=== PATIENT | male | born 1970 | race Caucasian/White ===

== ENCOUNTER → 2017-10-29 | Outpatient (CLI) | payer OTHER ==
--- NOTE | 2017-10-29 07:42 | MR ---
EXAMINATION TYPE: MR pituitary wo/w con DATE OF EXAM: 10/29/2017 COMPARISON: NONE HISTORY: Hypothyroidism,Testicular hypofunction TECHNIQUE: Multiplanar, multisequence images of the pituitary is performed without and with IV contrast, utilizi ng 10 mL intravenous Gadavist . FINDINGS: There is a 10.4 x 12.2 millimeter pituitary. Superior dome of the pituitary has slight rounding which may be slightly prominent in a male of this age. Pituitary stalk is in the midline. Pituitary appear s homogenous. Carotid siphon adjacent normal flow voids. No encasement is evident. Optic chiasm is unremarkable. Portions of the brain included within the [id number] are unremarkabl e. IMPRESSION: 1. Pituitary appears slightly full for age and sex match comparison. Discrete focal pituitary abnorma lity is not identified.
== END | disposition home or self-care (01) ==
LOC: RADMRIMAIN 06:16
PROVIDERS: ATTEND Internal Medicine Endocrinology, Diabetes & Metabolism
DX: E03.9 Hypothyroidism, unspecified (principal); E11.9 Type 2 diabetes mellitus without complications; E55.9 Vitamin D deficiency, unspecified; K71.9 Toxic liver disease, unspecified; E29.1 Testicular hypofunction
CPT/HCPCS: 70553; A9581

== ENCOUNTER → 2017-11-05 | Outpatient (CLI) | payer OTHER | END | disposition home or self-care (01) | LOC: LABWHC1 08:45 | PROVIDERS: ATTEND Internal Medicine Endocrinology, Diabetes & Metabolism | DX: E03.9 Hypothyroidism, unspecified (principal); E11.9 Type 2 diabetes mellitus without complications; E55.9 Vitamin D deficiency, unspecified; E29.1 Testicular hypofunction | CPT/HCPCS: 36415; 82947; 82950 ==

== ENCOUNTER → 2018-02-08 | Outpatient (CLI) | payer OTHER ==
[2018-02-08 10:20] LABS: Albumin 4.5 g/dL (3.5-5.0); Total Protein 7.1 g/dL (6.3-8.2)
[2018-02-08 10:34] LABS: T4, Free (Free Thyroxine) 0.96 ng/dL (0.78-2.19)
[2018-02-08 10:40] LABS: Appearance,Urine Clear (Clear); Bilirubin,Urine Negative (Negative); Blood,Urine Negative (Negative); Color,Urine Yellow; Glucose,Urine (UA) Negative (Negative); Ketones,Urine Negative (Negative); Leukocyte Esterase,Urine Negative (Negative); Nitrite,Urine Negative (Negative); Protein,Urine Negative (Negative); Urobilinogen,Urine <2.0 mg/dL (<2.0)
[2018-02-08 10:48] LABS: Prostate Specific Antigen 0.64 ng/mL (0.00-4.00)
[2018-02-08 17:24] LABS: Vitamin D 25 Hydroxy 17.8 ng/mL (30.0-100.0)
[2018-02-08 17:52] LABS: Sex Horm Bind Glob 11.8 nmol/L (14.55-94.64)
== END | disposition home or self-care (01) ==
LOC: LABWHC1 09:07
PROVIDERS: ATTEND Internal Medicine Endocrinology, Diabetes & Metabolism
DX: E11.65 Type 2 diabetes mellitus with hyperglycemia (principal); E03.9 Hypothyroidism, unspecified; E78.2 Mixed hyperlipidemia; K71.9 Toxic liver disease, unspecified; E86.0 Dehydration; E55.9 Vitamin D deficiency, unspecified
CPT/HCPCS: 36415; 80061; 81003; 82040; 82043; 82306; 82570; 83001; 83002; 84153; 84155; 84270; 84403; 84439; 84443; 84450; 84460; 84681

== ENCOUNTER → 2018-09-05 | Outpatient (CLI) | payer OTHER ==
[2018-09-05 16:22] LABS: LDL Cholesterol, Direct 154.4 mg/dL (0.0-129.0)
[2018-09-05 16:31] LABS: Vitamin D 25 Hydroxy 18.8 ng/mL (30.0-100.0)
[2018-09-06 13:39] LABS: Total Volume 24 Hour,Urine 750 mL
[2018-09-06 14:52] LABS: Total Protein 24 Hour,Urine 60.8 mg/24Hr
== END ==
LOC: LABWHC1 09:46
PROVIDERS: ATTEND Internal Medicine Endocrinology, Diabetes & Metabolism
DX: E11.21 Type 2 diabetes mellitus with diabetic nephropathy (principal); E11.65 Type 2 diabetes mellitus with hyperglycemia; E78.2 Mixed hyperlipidemia
CPT/HCPCS: 36415; 82043; 82306; 82570; 82575; 82607; 83721; 84156; 84443; 84478

== ENCOUNTER → 2019-01-26 | Outpatient (CLI) | payer OTHER ==
[~2019-01-26] MED LIST: REGADENOSON 0.4 MG/5 ML SYRINGE IV ONE
--- NOTE | 2019-01-26 11:21 | NM ---
EXAMINATION TYPE: NM stress lexiscan cardiolite DATE OF EXAM: 01/26/2019 COMPARISON: NONE HISTORY: Chest pain TECHNIQUE: After the intravenous administration of 10.2 mCi Tc 99m Sestamibi - Cardiolite resting SP ECT images acquired 45 minutes post injection. The patient received 0.4mg Lexiscan, 26.6 mCi Tc 99m Sestamibi - Stress images obtained [address] injection FINDINGS: Review of stress and rest SPECT images demonstrates no distinct perfusion abnormality. Gated analysi s shows normal wall motion with an estimated left ventricular ejection fraction of 40 %. IMPRESSION: No scintigraphic evidence for reversible ischemia.
--- NOTE | 2019-01-26 13:07 | EST ---
EXERCISE STRESS DATE OF SERVICE: 01/26/2019 AGE: 48 SEX: Male HT: 72" WT: 235 pounds PROTOCOL: Lexiscan Cardiolite STAGE: DURATION OF EXERCISE: HEART RATE REST: 65 BLOOD PRESSURE REST: 118/98 MAXIMUM HEART RATE ACHIEVED: 81 MAXIMUM BLOOD PRESSURE: 118/84 85% MPHR: 100% MPHR: METS: INDICATIONS: Chest pain. CLINICAL INFORMATION: Patient was given Lexiscan injection over a period of 10 seconds. Peak heart rate of 81, was achieved. Maximum blood pressure of 118/84 mmHg was noted. Resting EKG shows normal sinus rhythm with normal [place] interval and QRS duration and normal ST-T waves. No ST-segment depression suggestive of ischemia is noted. Results of the nuclear study will follow. MMODL / IJN: [id number] /
== END | disposition home or self-care (01) ==
LOC: RADNMMAIN 08:21
PROVIDERS: ATTEND Family Medicine
DX: R07.9 Chest pain, unspecified (principal); R94.31 Abnormal electrocardiogram [ECG] [EKG]
CPT/HCPCS: 93017; 78452; A9500; J2785

== ENCOUNTER 2019-03-07 10:29 | Outpatient (CLI) | payer OTHER | END 2019-03-07 12:37 | disposition home or self-care (01) | LOC: LABWHC1 10:29 | PROVIDERS: ATTEND Internal Medicine Endocrinology, Diabetes & Metabolism | DX: Z53.9 Procedure and treatment not carried out, unspecified reason (principal) ==

== ENCOUNTER 2019-03-07 10:40 | Observation (INO) | payer OTHER ==
[2019-03-07] MEDS ORDERED: KETOROLAC 30 MG/ML 1 ML VIAL IVP STA (11:09)
[2019-03-07] MEDS ORDERED: MORPHINE SULFATE 2 MG/ML SYRINGE IVP STA (11:09)
[2019-03-07] MEDS ORDERED: SODIUM CHLORIDE 0.9% 1,000 ML IV ONE (11:09)
--- NOTE | 2019-03-07 11:13 | ED ---
Abdominal Pain HPI <Yuan Navarro - Last Filed: 03/07/19 13:50> - General Source: patient Mode of arrival: ambulatory Limitations: no limitations <Pamela Loco - Last Filed: 03/07/19 15:43> - General Chief Complaint: Abdominal Pain Stated Complaint: Abd.pain Time Seen by Provider: 03/07/19 10:50 - History of Present Illness Initial Comments: 48-year-old male past medical history of peptic ulcer, kidney stones, diabetes, hypertension presenting today for cc of mid lower abdominal pain/burning. Pat ient states in the lower abdomen he has a burning sensation that comes in waves. He states it and come back 15 minutes later. He states at times it radiates towards the right side of his back. Patient denies any hematuria dysuria urgency or frequency. He denies any vomiting. Denies any upper abdominal pain chest pain or shortness of breath. He states he has had stools are loose within normal melena or hematochezia. Patient states she is currently undergoing cardiac clearance for endoscopy as he states that he has had frequent issues with his abdomen, he states that pain is usually burning in the upper abdomen, pt denies any of those symptoms today. Pt states that the pain today began around 5:30AM. Has been on and off. He states he was at the hospital for routine lab draw as prescribed by primary care provider, when he had another episode of pain and presented to the ER for evaluation. Upon arrival pt BP is elevated. Remaining ROS (-). (Pamela Loco) - Related Data Home Medications Medication Instructions Recorded Confirmed Atorvastatin [Lipitor] 10 mg PO DAILY 03/07/19 03/07/19 Empagliflozin [Jardiance] 25 mg PO DAILY 03/07/19 03/07/19 Levothyroxine Sodium [Synthroid] 88 mcg PO DAILY 03/07/19 03/07/19 buPROPion XL [Wellbutrin Xl] 150 mg PO DAILY 03/07/19 03/07/19 Allergies Allergy/AdvReac Type Severity Reaction Status Date / Time No Known Allergies Allergy Verified 03/07/19 10:56 Review of Systems ROS Other: All systems not noted in ROS Statement are negative. <Yuan Navarro - Last Filed: 03/07/19 13:50> ROS Other: All systems not noted in ROS Statement are negative. <Pamela Loco - Last Filed: 03/07/19 15:43> ROS Statement: Those systems with pertinent positive or pertinent negative responses have been documented in the HPI. Past Medical History Past Medical History: Diabetes Mellitus History of Any Multi-Drug Resistant Organisms: None Reported Past Surgical History: No Surgical Hx Reported Additional Past Surgical History / Comment(s): Stress test Past Psychological History: No Psychological Hx Reported Smoking Status: Never smoker Past Alcohol Use History: None Reported Past Drug Use History: None Reported <Pamela Loco - Last Filed: 03/07/19 15:43> General Exam Limitations: no limitations <Pamela Loco - Last Filed: 03/07/19 15:43> - General Exam Comments Initial Comments: General: The patient is awake and alert, in no distress, but patient does appear uncomfortable. Eye: +3 mm pupils are equal, round and reactive to light, extra-ocular movements are intact. No nystagmus. There is normal conjunctiva bilaterally. No signs of icterus. Ears, nose, mouth and throat: There are moist mucous membranes and no oral lesions. Neck: The neck is supple, there is no tenderness or JVD. Cardiovascular: There is a regular rate and rhythm. No murmur, rub or gallop is appreciated. Respiratory: Lungs are clear to auscultation, respirations are non-labored, breath sounds are equal. No wheezes, stridor, rales, or rhonchi. Gastrointestinal: Soft, non-distended, non-tender abdomen without masses or organomegaly noted. There is no rebound or guarding present. No CVA tenderness. Bowel sounds are unremarkable. Musculoskeletal: Normal ROM, no tenderness. Strength 5/5. Sensation intact. Pulses equal bilaterally 2+. Neurological: A&O x 3. CN II-XII intact, There are no obvious motor or sensory deficits. Coordination appears grossly intact. Speech is normal. Skin: Skin is warm and dry and no rashes or lesions are noted. Psychiatric: Cooperative, appropriate mood & affect, normal judgment. (Ariadna Locoharry Ward) Course <NavarroYuan - Last Filed: 03/07/19 13:50> Vital Signs 03/07/19 03/07/19 03/07/19 10:46 12:30 14:00 Temperature 97.6 F 98.3 F Pulse Rate 80 62 67 Respiratory 20 18 20 Rate Blood Pressure 166/106 129/73 138/88 O2 Sat by Pulse 98 98 95 Oximetry - Reevaluation(s) Reevaluation #1: 03/07/19 13:50 Patient reevaluated and reexamined by myself, Dr. Navarro. Patient resting comfortably in bed. Abdomen soft with mild tenderness right lower quadrant. CT report reviewed. Case was discussed in detail with Dr. Alvarez, at patient request. He will take the patient to the OR. He does request antibiotics. (Yuan Navarro) Medical Decision Making - Lab Data Result diagrams: 03/07/19 11:30 03/07/19 11:30 <Yuan Navarro - Last Filed: 03/07/19 13:50> - Lab Data Result diagrams: 03/07/19 11:30 03/07/19 11:30 <Pamela Loco - Last Filed: 03/07/19 15:43> - Medical Decision Making 48yo male presenting today for chief complaint of right side abdominal pain. Patient has history of kidney stones. There was concern with location of pain with radiation to the right flank this was another stone patient did deny urinary symptoms. There is no smoking tenderness to palpation of the abdomen. Patient was given Toradol, morphine-helped minimally. Laboratory studies revealed leukocytosis. Pt does not appears toxic, afebrile. CT obtained revealing any consistent with acute appendicitis. Patient was started on zosyn, blood cultures obtained process. No signs of peritneal irritations. Pt preferred Dr. Reilly as a surgeron. Dr. Reilly accepted admission. Agreeable with admission and care plan. Pt transferred to the floor after discussing results/care plan, appearing well. Medicine on consult. Case was discussed with Dr. Navarro who did speak with admitting provider, no further orders. (Pamela Loco) - Lab Data Lab Results 03/07/19 03/07/19 03/07/19 Range/Units 11:30 11:30 11:30 WBC 11.4 H (3.8-10.6) k/uL RBC 5.38 (4.30-5.90) m/uL Hgb 15.5 (13.0-17.5) gm/dL Hct 46.7 (39.0-53.0) % MCV 86.9 (80.0-100.0) fL MCH 28.9 (25.0-35.0) pg MCHC 33.2 (31.0-37.0) g/dL RDW 13.4 (11.5-15.5) % Plt Count 225 (150-450) k/uL Neutrophils % 75 % Lymphocytes % 18 % Monocytes % 5 % Eosinophils % 1 % Basophils % 0 % Neutrophils # 8.6 H (1.3-7.7) k/uL Lymphocytes # 2.0 (1.0-4.8) k/uL Monocytes # 0.6 (0-1.0) k/uL Eosinophils # 0.1 (0-0.7) k/uL Basophils # 0.0 (0-0.2) k/uL Sodium 142 (137-145) mmol/L Potassium 4.4 (3.5-5.1) mmol/L Chloride 110 H (98-107) mmol/L Carbon Dioxide 23 (22-30) mmol/L Anion Gap 9 mmol/L BUN 20 (9-20) mg/dL Creatinine 0.92 (0.66-1.25) mg/dL Est GFR (CKD-EPI)AfAm >90 (>60 ml/min/1.73 sqM) Est GFR (CKD-EPI)NonAf >90 (>60 ml/min/1.73 sqM) Glucose 147 H (74-99) mg/dL POC Glucose (mg/dL) 141 H (75-99) mg/dL POC Glu Horizontal Boring [employer] Operator ID [place] Calcium 9.9 (8.4-10.2) mg/dL Total Bilirubin 1.0 (0.2-1.3) mg/dL AST 24 (17-59) U/L ALT 52 (21-72) U/L Alkaline Phosphatase 95 (38-126) U/L Total Protein 7.1 (6.3-8.2) g/dL Albumin 4.5 (3.5-5.0) g/dL Amylase 40 (30-110) U/L Lipase 48 (23-300) U/L Urine Color Urine Appearance (Clear) Urine pH (5.0-8.0) Ur Specific [place] (1.001-1.035) Urine Protein (Negative) Urine Glucose (UA) (Negative) Urine Ketones (Negative) Urine Blood (Negative) Urine Nitrite (Negative) Urine Bilirubin (Negative) Urine Urobilinogen (<2.0) mg/dL Ur Leukocyte Esterase (Negative) 03/07/19 Range/Units 11:30 WBC (3.8-10.6) k/uL RBC (4.30-5.90) m/uL Hgb (13.0-17.5) gm/dL Hct (39.0-53.0) % MCV (80.0-100.0) fL MCH (25.0-35.0) pg MCHC (31.0-37.0) g/dL RDW (11.5-15.5) % Plt Count (150-450) k/uL Neutrophils % % Lymphocytes % % Monocytes % % Eosinophils % % Basophils % % Neutrophils # (1.3-7.7) k/uL Lymphocytes # (1.0-4.8) k/uL Monocytes # (0-1.0) k/uL Eosinophils # (0-0.7) k/uL Basophils # (0-0.2) k/uL Sodium (137-145) mmol/L Potassium (3.5-5.1) mmol/L Chloride (98-107) mmol/L Carbon Dioxide (22-30) mmol/L Anion Gap mmol/L BUN (9-20) mg/dL Creatinine (0.66-1.25) mg/dL Est GFR (CKD-EPI)AfAm (>60 ml/min/1.73 sqM) Est GFR (CKD-EPI)NonAf (>60 ml/min/1.73 sqM) Glucose (74-99) mg/dL POC Glucose (mg/dL) (75-99) mg/dL POC Glu Horizontal [employer] Operator ID Calcium (8.4-10.2) mg/dL Total Bilirubin (0.2-1.3) mg/dL AST (17-59) U/L ALT (21-72) U/L Alkaline Phosphatase (38-126) U/L Total Protein (6.3-8.2) g/dL Albumin (3.5-5.0) g/dL Amylase (30-110) U/L Lipase (23-300) U/L Urine Color Yellow Urine Appearance Clear (Clear) Urine pH 5.0 (5.0-8.0) Ur Specific [place] 1.040 H (1.001-1.035) Urine Protein Negative (Negative) Urine Glucose (UA) 4+ H (Negative) Urine Ketones Negative (Negative) Urine Blood Negative (Negative) Urine Nitrite Negative (Negative) Urine Bilirubin Negative (Negative) Urine Urobilinogen <2.0 (<2.0) mg/dL Ur Leukocyte Esterase Negative (Negative) Disposition <Yuan Navarro - Last Filed: 03/07/19 13:50> Is patient prescribed a controlled substance at d/c from ED?: No Time of Disposition: 13:44 Decision to Admit Reason: Admit from EC Decision Date: 03/07/19 Decision Time: 13:44 <Pamela Loco - Last Filed: 03/07/19 15:43> Clinical Impression: Appendicitis Disposition: ADMITTED IP TO THIS HOSP Condition: Stable
[2019-03-07 11:33] LABS: Glucose,Whole Blood 141 mg/dL (75-99)
[2019-03-07 11:47] LABS: Appearance,Urine Clear (Clear); Bilirubin,Urine Negative (Negative); Blood,Urine Negative (Negative); Color,Urine Yellow; Glucose,Urine (UA) 4+ (Negative); Ketones,Urine Negative (Negative); Leukocyte Esterase,Urine Negative (Negative); Nitrite,Urine Negative (Negative); Protein,Urine Negative (Negative); Urobilinogen,Urine <2.0 mg/dL (<2.0)
[2019-03-07 11:48] LABS: Basophils % (A) 0 %; Eosinophils # (A) 0.1 k/uL (0-0.7); Eosinophils % (A) 1 %; HCT 46.7 % (39.0-53.0); HGB 15.5 gm/dL (13.0-17.5); Lymphocytes % (A) 18 %; MCH 28.9 pg (25.0-35.0); MCHC 33.2 g/dL (31.0-37.0); MCV 86.9 fL (80.0-100.0); Mean Platelet Volume 7.2; Monocytes # (A) 0.6 k/uL (0-1.0); Monocytes % (A) 5 %; Neutrophils # (A) 8.6 k/uL (1.3-7.7); Neutrophils % (A) 75 %; Platelet Count 225 k/uL (150-450); RBC 5.38 m/uL (4.30-5.90); RDW 13.4 % (11.5-15.5); WBC 11.4 k/uL (3.8-10.6)
[2019-03-07 11:59] LABS: ALT 52 U/L (21-72); AST 24 U/L (17-59); Albumin 4.5 g/dL (3.5-5.0); Alkaline Phosphatase 95 U/L (38-126); Amylase 40 U/L (30-110); Anion Gap 9 mmol/L; Blood Urea Nitrogen 20 mg/dL (9-20); Calcium 9.9 mg/dL (8.4-10.2); Carbon Dioxide 23 mmol/L (22-30); Chloride 110 mmol/L (98-107); Glucose 147 mg/dL (74-99); Lipase 48 U/L (23-300); Potassium 4.4 mmol/L (3.5-5.1); Sodium 142 mmol/L (137-145); Total Protein 7.1 g/dL (6.3-8.2)
--- NOTE | 2019-03-07 13:31 | CT ---
EXAMINATION TYPE: CT abdomen pelvis w con DATE OF EXAM: 03/07/2019 COMPARISON: NONE HISTORY: 48-year-old male with right flank Pain TECHNIQUE: Contiguous axial scanning of the abdomen and pelvis following administration of 100 ml Iso sweetie 300 IV contrast. Delayed images through the kidneys and coronal/sagittal reconstructions perform ed. CT DLP: 1263.9 mGycm Automated exposure control for dose reduction was used. FINDINGS: Heart normal size without pericardial effusion. Lung bases clear without pleural effusion. Liver enlarged measuring 22.4 cm. Low density of the hepatic parenchyma. Portal venous system is quach nt. No biliary ductal dilatation. Gallbladder, adrenal glands, spleen with inferior splenule, pancreas appear within normal limits. No nephrolithiasis or hydronephrosis. Symmetric uptake and excretion of contrast from both kidneys. No dilated small bowel, free fluid, or free air. Some scattered nonenlarged borderline sized mesenteric lymph nodes, likely reactive/post inflammatory . Appendix is visualized. It is mildly thickened at 1 cm in the mid to distal portion is fluid-filled. Minimal periappendiceal fat stranding is suggested. No significant stool burden. No pericolonic inflammatory change. Bladder is urine distended. Prostate gland mildly enlarged at 4.2 cm. Pelvic phleboliths. No abnormal fluid collection in the pelvis or pelvic lymphadenopathy. Bones: Mild degenerative changes at the hips. Mild degenerative changes left SI joint. Status post L4 /L5 laminectomy. Degenerative disc disease L5-S1. IMPRESSION: 1. MILDLY THICKENED, FLUID-FILLED APPENDIX WITH MINIMAL PERIAPPENDICEAL FAT STRANDING. FINDINGS ARE S USPICIOUS FOR EARLY ACUTE APPENDICITIS. NO ABSCESS OR FREE AIR. 2. HEPATOMEGALY (22.4 CM) WITH HEPATIC STEATOSIS. 3. NO NEPHROLITHIASIS OR HYDRONEPHROSIS.
[2019-03-07] MEDS ORDERED: PIPERACILLIN-TAZOBACTAM 3.375 GM in SODIUM CHLORIDE 0.9% 100 ML IVPB STA (13:33)
[2019-03-07] MEDS ORDERED: NALOXONE 0.4 MG/ML 1 ML VIAL IV PRN (13:55)
[2019-03-07] MEDS ORDERED: ONDANSETRON 4 MG/2 ML VIAL IVP PRN ×2 (13:55→16:24)
[2019-03-07] MEDS: SODIUM CHLORIDE 0.9% 1,000 ML IV SCH (14:17)
[2019-03-07] MEDS: MORPHINE SULFATE 4 MG/ML SYRINGE IV PRN ×2 (15:01→22:46)
[2019-03-07] MEDS ORDERED: IV FLUID CONTINUATION 1,000 ML IV ONE (15:16)
[2019-03-07 15:17] VITALS: BMI 32.5
[2019-03-07] MEDS ORDERED: LACTATED RINGERS 1,000 ML IV ONE (15:49)
[2019-03-07] MEDS ORDERED: BUPIVACAIN-EPI 0.5%-1:200,000 30 ML VIAL SQ ONE ×2 (16:12)
--- NOTE | 2019-03-07 16:18 | P.GSHP ---
History of Present Illness H&P Date: 03/07/19 Chief Complaint: acute appendicitis Patient presents to the ER today with complaints of lower abdominal pain. Right side greater than left. Radiation to the right back. He has had similar symptoms in the past. He has had a history of kidney stones in the past. Patient underwent a CAT scan of the and pelvis which shows a dilated appendix approaching 10 mm. Mild inflammatory changes present. No additional abnormalities to explain his pain. White blood cell count slightly elevated. He is afebrile. Denies hematuria or dysuria. No change in bowel habits. Past Medical History Past Medical History: Diabetes Mellitus Additional Past Medical History / Comment(s): NIDDM type II, neuropathy bilateral feet, frequent abdominal pain, nephrolithiasis, hypothyroid, chronic low back pain, DDD, back injury with wt lifting, nerve damage L leg. History of Any Multi-Drug Resistant Organisms: None Reported Past Surgical History: No Surgical Hx Reported Additional Past Surgical History / Comment(s): Stress test Past Anesthesia/Blood Transfusion Reactions: No Reported Reaction Past Psychological History: No Psychological Hx Reported Smoking Status: Never smoker Past Alcohol Use History: None Reported Past Drug Use History: None Reported - Past Family History Father Family Medical History: Diabetes Mellitus Mother Family Medical History: Rheumatoid Arthritis (RA) Son(s) Family Medical History: Rheumatoid Arthritis (RA) Medications and Allergies Home Medications Medication Instructions Recorded Confirmed Type Atorvastatin [Lipitor] 10 mg PO DAILY 03/07/19 03/07/19 History Empagliflozin [Jardiance] 25 mg PO DAILY 03/07/19 03/07/19 History Levothyroxine Sodium [Synthroid] 88 mcg PO DAILY 03/07/19 03/07/19 History buPROPion XL [Wellbutrin Xl] 150 mg PO DAILY 03/07/19 03/07/19 History Allergies Allergy/AdvReac Type Severity Reaction Status Date / Time No Known Allergies Allergy Verified 03/07/19 10:56 Surgical - Exam Vital Signs Temp Pulse Resp BP Pulse Ox 97.6 F 80 20 166/106 98 03/07/19 10:46 03/07/19 10:46 03/07/19 10:46 03/07/19 10:46 03/07/19 10:46 Physical exam: General: Well-developed, well-nourished HEENT: Normocephalic, sclerae nonicteric Abdomen: Right lower quadrant tenderness, no rebound or guarding, no CVA tenderness, nondistended Extremities: No edema Neuro: Alert and oriented Results - Labs 03/07/19 11:30 03/07/19 11:30 Abnormal Lab Results - Last 24 Hours (Table) 03/07/19 03/07/19 03/07/19 Range/Units 11:30 11:30 11:30 WBC 11.4 H (3.8-10.6) k/uL Neutrophils # 8.6 H (1.3-7.7) k/uL Chloride 110 H (98-107) mmol/L Glucose 147 H (74-99) mg/dL POC Glucose (mg/dL) 141 H (75-99) mg/dL Ur Specific [place] (1.001-1.035) Urine Glucose (UA) (Negative) 03/07/19 Range/Units 11:30 WBC (3.8-10.6) k/uL Neutrophils # (1.3-7.7) k/uL Chloride (98-107) mmol/L Glucose (74-99) mg/dL POC Glucose (mg/dL) (75-99) mg/dL Ur Specific [place] 1.040 H (1.001-1.035) Urine Glucose (UA) 4+ H (Negative) Diabetes panel 03/07/19 Range/Units 11:30 Sodium 142 (137-145) mmol/L Potassium 4.4 (3.5-5.1) mmol/L Chloride 110 H (98-107) mmol/L Carbon Dioxide 23 (22-30) mmol/L BUN 20 (9-20) mg/dL Creatinine 0.92 (0.66-1.25) mg/dL Glucose 147 H (74-99) mg/dL Calcium 9.9 (8.4-10.2) mg/dL AST 24 (17-59) U/L ALT 52 (21-72) U/L Alkaline Phosphatase 95 (38-126) U/L Total Protein 7.1 (6.3-8.2) g/dL Albumin 4.5 (3.5-5.0) g/dL Calcium panel 03/07/19 Range/Units 11:30 Calcium 9.9 (8.4-10.2) mg/dL Albumin 4.5 (3.5-5.0) g/dL Pituitary panel 03/07/19 Range/Units 11:30 Sodium 142 (137-145) mmol/L Potassium 4.4 (3.5-5.1) mmol/L Chloride 110 H (98-107) mmol/L Carbon Dioxide 23 (22-30) mmol/L BUN 20 (9-20) mg/dL Creatinine 0.92 (0.66-1.25) mg/dL Glucose 147 H (74-99) mg/dL Calcium 9.9 (8.4-10.2) mg/dL Adrenal panel 03/07/19 Range/Units 11:30 Sodium 142 (137-145) mmol/L Potassium 4.4 (3.5-5.1) mmol/L Chloride 110 H (98-107) mmol/L Carbon Dioxide 23 (22-30) mmol/L BUN 20 (9-20) mg/dL Creatinine 0.92 (0.66-1.25) mg/dL Glucose 147 H (74-99) mg/dL Calcium 9.9 (8.4-10.2) mg/dL Total Bilirubin 1.0 (0.2-1.3) mg/dL AST 24 (17-59) U/L ALT 52 (21-72) U/L Alkaline Phosphatase 95 (38-126) U/L Total Protein 7.1 (6.3-8.2) g/dL Albumin 4.5 (3.5-5.0) g/dL Assessment and Plan (1) Appendicitis Narrative/Plan: Clinical scenario and diagnostic studies discussed with patient and his . Will proceed with laparoscopic appendectomy, possible open appendectomy. Risks of bleeding, infection, abscess, staple line dehiscence, ureteral or bowel injury, persistent pain, conversion to an open procedure, respiratory and cardiac complications were reviewed. He understands and wishes to proceed. Current Visit: Yes Status: Acute Code(s): K37 - UNSPECIFIED APPENDICITIS SNOMED Code(s): 27295583
[2019-03-07] MEDS ORDERED: fentaNYL (PF) 50 MCG/ML 2 ML AMP ONE (16:23)
[2019-03-07] MEDS ORDERED: SUCCINYLCHOLINE CHLORIDE 100 MG/5 ML SYR IV ONE (16:23)
[2019-03-07] MEDS ORDERED: MIDAZOLAM 2 MG/2 ML VIAL ONE (16:23)
[2019-03-07] MEDS ORDERED: ROCURONIUM BROMIDE 10 MG/ML 10 ML VIAL IV ONE (16:23)
[2019-03-07] MEDS ORDERED: HEPARIN SODIUM,PORCINE 5,000 UNIT/ML 1 ML VIAL SQ ONE (16:23)
[2019-03-07] MEDS ORDERED: ONDANSETRON 4 MG/2 ML VIAL ONE (16:23)
[2019-03-07] MEDS ORDERED: LIDOCAINE 1% INJ 10MG/ML (20 ML MDV) ONE (16:23)
[2019-03-07] MEDS ORDERED: PROPOFOL 10 MG/ML 20 ML VIAL IV ONE (16:23)
[2019-03-07] MEDS ORDERED: GLYCOPYRROLATE 0.2 MG/ML 2 ML VIAL ONE (16:23)
[2019-03-07] MEDS ORDERED: NEOSTIGMINE 1 MG/ML 10 ML VIAL ONE (16:23)
[2019-03-07] MEDS ORDERED: FAMOTIDINE 20 MG/2 ML VIAL IV PRN (16:24)
[2019-03-07] MEDS ORDERED: HYDROmorphone 0.5 MG/0.5 ML SYRINGE IVP PRN (16:24)
[2019-03-07] MEDS ORDERED: LACTATED RINGERS 1,000 ML IV SCH (16:30)
[2019-03-07] MEDS ORDERED: KETOROLAC 30 MG/ML 1 ML VIAL IVP ONE (17:32)
[2019-03-07] MEDS ORDERED: ONDANSETRON 4 MG/2 ML VIAL IVP ONE (17:47)
[2019-03-07] MEDS ORDERED: HYDROcodone/APAP 5-325MG 1 EACH TAB PO PRN (17:52)
--- NOTE | 2019-03-07 17:52 | P.OP ---
Date of Procedure: 03/07/19 Procedure(s) Performed: PREOPERATIVE DIAGNOSIS: Acute appendicitis POSTOPERATIVE DIAGNOSIS: Same PROCEDURE: Laparoscopic appendectomy SURGEON: Melba EBL: Total ANESTHESIA: General COMPLICATIONS: None OPERATIVE PROCEDURE: The patient was brought and placed on the operating table in the supine position. The patient was placed under general anesthesia. The abdomen was prepped and draped in the usual sterile fashion. A small vertical infraumbilical incision was made. The fascia was retracted anteriorly with Mike forceps. The Veress needle was advanced into the peritoneal cavity. The saline drop test was normal. Insufflation took place to 15 mmHg. A 5 mm trocar was then placed. An additional 5 mm suprapubic trocar was placed under direct visualization as well as a 12 mm left lower quadrant trocar under direct visualization. The appendix was inspected. It was acutely inflamed. The mesoappendix was dissected. The base of the appendix was divided using a linear 45 mm intestinal stapler. The mesentery itself was divided using a augustin load stapler initially. A small area of bleeding was seen controlled using the 12 mm clip community outreach director. The area was then irrigated. No further purulence or bleeding was seen. The appendix was brought out of the peritoneal cavity through the left lower quadrant trocar site using an Endo Catch bag. The fascia at the 12 mm site was closed using a Erlin-Trang 0 Vicryl stitch. The skin at all 3 sites was closed using 4-0 Monocryl sutures. Skin glue was then applied. DISPOSITION: Stable to recovery room
[2019-03-07] MEDS: KETOROLAC 30 MG/ML 1 ML VIAL IVP SCH (18:04)
[2019-03-07 21:31] LABS: Glucose,Whole Blood 117 mg/dL (75-99)
[2019-03-07] MEDS: INSULIN ASPART (NovoLOG) 100 UNIT/ML VIAL SQ SCH (21:34)
--- NOTE | 2019-03-07 23:43 | CONS ---
CONSULTATION DATE OF SERVICE: 03/07/2019 REASON FOR CONSULTATION: Advice regarding diabetes and other medical issues, requested by Dr. Reilly. HISTORY OF PRESENT ILLNESS: This 48-year-old gentleman with a past medical history of diabetes mellitus, type 2, history of peripheral neuropathy, history of nephrolithiasis, hypothyroidism, chronic back pain, DJD, is being followed by Dr. Hilary Mcfarland in the outpatient setting. He underwent laparoscopic appendectomy for appendicitis. The patient has complaints of postoperative abdominal pain. Otherwise, there is no history of any fever, rigors, chills. No history of headache, loss of consciousness, seizures. PAST MEDICAL HISTORY: 1. History of diabetes mellitus, type 2. 2. Neuropathy, bilateral feet. 3. Nephrolithiasis. 4. Hypothyroidism. 5. Chronic back pain. 6. Degenerative joint disease. MEDICATIONS: Medications prior to admission were: 1. Wellbutrin XL 150 mg p.o. daily. 2. Synthroid 18 mcg p.o. daily. 3. Jardiance 25 mg p.o. daily. 4. Lipitor 10 mg daily. ALLERGIES: NONE. FAMILY HISTORY: History of diabetes mellitus in the family. SOCIAL HISTORY: No history of smoking. No history of alcohol intake. REVIEW OF SYSTEMS: ENT: No diminished hearing. No diminished vision. CARDIOVASCULAR SYSTEM: No angina, palpitations. RESPIRATORY SYSTEM: No cough, hemoptysis. GI: As mentioned earlier. : No dysuria or retention. NERVOUS SYSTEM: As mentioned earlier. ALLERGY/IMMUNOLOGY: No asthma, hayfever. MUSCULOSKELETAL: As mentioned earlier. HEMATOLOGY/ONCOLOGY: No history of anemia. ENDOCRINE: As mentioned earlier. CONSTITUTIONAL: As mentioned earlier. DERMATOLOGY: Negative. RHEUMATOLOGY: Negative. PSYCHIATRY: As mentioned earlier. PHYSICAL EXAMINATION: Patient alert and oriented x3. Pulse 50, blood pressure 143/85, respirations 16, temperature 97 degrees, pulse ox 94% on 3 L. HEENT: Conjunctivae normal. Oral mucosa moist. NECK: No jugular venous distention. No carotid bruit. No lymph node enlargement. CARDIOVASCULAR SYSTEM: S1, S2 muffled. No S3. No S4. RESPIRATORY SYSTEM: Breath sounds diminished at the bases. No rhonchi. No crackles. ABDOMEN: Soft. Status post surgery (laparoscopic appendectomy). LEGS: No edema. No swelling. NERVOUS SYSTEM: Higher functions as mentioned earlier. Moves all 4 limbs. No focal motor or sensory deficit. LYMPHATICS: No lymph node palpable in neck, axillae or groin. JOINTS: No active deforming arthropathy. LABS: WBC 11.4, hemoglobin 15.5. ASSESSMENT: 1. Status post laparoscopic appendectomy for acute appendicitis. 2. Diabetes mellitus, type 2. 3. Bilateral peripheral neuropathy. 4. Nephrolithiasis. 5. Hypothyroidism. 6. Chronic back pain and degenerative joint disease. RECOMMENDATIONS AND DISCUSSION: In this 48-year-old gentleman who presented after surgery, at this time I recommend to continue current management, continue symptomatic treatment. Monitor blood sugars closely. Otherwise, the basic labs are noted. DVT prophylaxis. Incentive spirometry. Will follow the patient closely with you. Patient may be asked to follow up with a primary physician in the outpatient setting. Once the patient is p.o., the rest of the medications also may be continued. Otherwise, we will follow the patient closely with you. Thank you, Dr. Reilly, for letting us participate in the care of this patient. MMODL / IJN: [id number] /
[2019-03-08] MEDS: HEPARIN SODIUM,PORCINE 5,000 UNIT/ML 1 ML VIAL SQ SCH ×2 (01:16→08:42)
[2019-03-08] MEDS: KETOROLAC 30 MG/ML 1 ML VIAL IVP SCH ×3 (01:16→12:51)
[2019-03-08] MEDS: SODIUM CHLORIDE 0.9% 1,000 ML IV SCH (01:17)
[2019-03-08] MEDS: PIPERACILLIN-TAZOBACTAM 3.375 GM in SODIUM CHLORIDE 0.9% 100 ML IVPB SCH ×2 (01:34→08:42)
[2019-03-08 03:52] VITALS: TEMP 98.1
[2019-03-08] MEDS ORDERED: LEVOTHYROXINE 88 MCG TAB PO SCH (06:30)
[2019-03-08 06:57] LABS: Glucose,Whole Blood 129 mg/dL (75-99)
[2019-03-08 08:34] VITALS: BP 108/68; PULSE 59; RESP 18
[2019-03-08] MEDS: INSULIN ASPART (NovoLOG) 100 UNIT/ML VIAL SQ SCH ×2 (08:37→12:51)
[2019-03-08] MEDS ORDERED: Empagliflozin [Jardiance] 25 MG PO SCH (09:00)
[2019-03-08] MEDS ORDERED: buPROPion XL 150 MG TAB.ER.24H PO SCH (09:00)
--- NOTE | 2019-03-08 09:33 | P.DS ---
Providers Date of admission: 03/07/19 13:51 Expected date of discharge: 03/08/19 Attending physician: Tim Reilly Consults: 03/07/19 13:56 Consult Physician Routine Consulting Provider: Monica Gibbs Consult Reason/Comments: appendicits, surgical admit, med consult Do you want consulting provider notified?: Yes Primary care physician: Hilary Mcfarland - Discharge Diagnosis(es) (1) Appendicitis Patient admitted yesterday through the emergency department. Doing well today. Tolerating liquid diet so far. Denies any significant pain. He is afebrile. Will advance diet further. Anticipate discharge today with outpatient follow-up in 1 week. Current Visit: Yes Status: Acute Patient Condition at Discharge: Stable Plan - Discharge Summary Discharge Rx Participant: No New Discharge Prescriptions: No Action buPROPion XL [Wellbutrin Xl] 150 mg PO DAILY Levothyroxine Sodium [Synthroid] 88 mcg PO DAILY Empagliflozin [Jardiance] 25 mg PO DAILY Atorvastatin [Lipitor] 10 mg PO DAILY Discharge Medication List Atorvastatin [Lipitor] 10 mg PO DAILY 03/07/19 [History] Empagliflozin [Jardiance] 25 mg PO DAILY 03/07/19 [History] Levothyroxine Sodium [Synthroid] 88 mcg PO DAILY 03/07/19 [History] buPROPion XL [Wellbutrin Xl] 150 mg PO DAILY 03/07/19 [History] Follow up Appointment(s)/Referral(s): Hilary Mcfarland, [Primary Care Provider] - 1-2 days
[2019-03-08 11:47] LABS: Glucose,Whole Blood 135 mg/dL (75-99)
--- NOTE | 2019-03-08 17:25 | PN ---
PROGRESS NOTE DATE OF SERVICE: 03/08/2019 This 48-year-old gentleman who was admitted after appendectomy is being closely monitored. No chest pain. No palpitations. Patient complains of postoperative abdominal pain. On exam, alert and oriented x3. Pulse 59, blood pressure 108/68, respiration 18, temperature 98.1, pulse ox 94% on room air. HEENT: Conjunctivae normal. NECK: No jugular venous distention. CARDIOVASCULAR SYSTEM: S1, S2 muffled. RESPIRATORY SYSTEM: Breath sounds diminished at the bases. No rhonchi. No crackles. ABDOMEN: Soft. Status post surgery. LEGS: No edema. No swelling. NERVOUS SYSTEM: No focal deficit. LABS: WBC 11.4. Accu-Cheks are noted. ASSESSMENT: 1. Status post laparoscopic appendectomy for acute appendicitis. 2. Diabetes mellitus, type 2. 3. Bilateral peripheral neuropathy. 4. Nephrolithiasis. 5. Hypothyroidism. 6. Chronic back pain. 7. Degenerative joint disease. RECOMMENDATIONS AND DISCUSSION: I recommend to continue current medications, continue with the monitoring, symptomatic treatment. Resume the home medications. Monitor blood sugars closely. Incentive spirometry. Closely follow with the primary physician. The rest of the medications per Dr. Reilly. Further recommendations to follow. MMODL / IJN: [id number] /
== END 2019-03-08 13:30 | disposition home or self-care (01) ==
LOC: EC 10:40 → 1SOBS 13:51
PROVIDERS: ADMIT Surgery; ATTEND Surgery
DX: K35.30 Acute appendicitis with localized peritonitis, without perforation or gangrene (principal); I10 Essential (primary) hypertension; E11.42 Type 2 diabetes mellitus with diabetic polyneuropathy; E03.9 Hypothyroidism, unspecified; M19.90 Unspecified osteoarthritis, unspecified site; G47.33 Obstructive sleep apnea (adult) (pediatric); E78.5 Hyperlipidemia, unspecified; M10.9 Gout, unspecified; K76.0 Fatty (change of) liver, not elsewhere classified; G89.29 Other chronic pain; M54.5 Low back pain; Z79.890 Hormone replacement therapy; Z79.84 Long term (current) use of oral hypoglycemic drugs; Z79.899 Other long term (current) drug therapy; Z87.442 Personal history of urinary calculi; Z87.11 Personal history of peptic ulcer disease; Z82.61 Family history of arthritis; Z83.3 Family history of diabetes mellitus
CPT/HCPCS: 44970; 96372; 96361; 96374; 96375; 99285; 36415; 88304; 80053; 82150; 83690; 85025; 81003; 87040; 74177; G0378 ×2; J2543 ×2; J2250; J2270 ×2; J1644 ×2; J2710; J2405; J2001; J3010; J1885 ×2; J0330; J2704; J1170; Q9967

== ENCOUNTER → 2019-10-02 | Outpatient (CLI) | payer OTHER ==
[2019-10-02 19:20] LABS: Anion Gap 7.7 mmol/L (4.00-12.00); Carbon Dioxide 23.3 mmol/L (21.6-31.8); Potassium 4.2 mmol/L (3.5-5.5)
== END | disposition home or self-care (01) ==
LOC: LABWHC1 11:17
PROVIDERS: ATTEND Internal Medicine Endocrinology, Diabetes & Metabolism
DX: E11.65 Type 2 diabetes mellitus with hyperglycemia (principal); E11.21 Type 2 diabetes mellitus with diabetic nephropathy; E78.2 Mixed hyperlipidemia; E03.9 Hypothyroidism, unspecified; K71.9 Toxic liver disease, unspecified; E86.0 Dehydration; E55.9 Vitamin D deficiency, unspecified
CPT/HCPCS: 36415; 80051; 82306; 84443; 84450; 84460; 84520

== ENCOUNTER → 2020-08-29 | Outpatient (CLI) | payer OTHER ==
[2020-08-29 14:58] LABS: Basophils # (A) 0.1 k/uL (0-0.2); Basophils % (A) 1 %; Eosinophils # (A) 0.1 k/uL (0-0.7); Eosinophils % (A) 1 %; HCT 50.3 % (39.0-53.0); HGB 16.3 gm/dL (13.0-17.5); Lymphocytes # (A) 2.8 k/uL (1.0-4.8); Lymphocytes % (A) 37 %; MCH 29.3 pg (25.0-35.0); MCHC 32.4 g/dL (31.0-37.0); MCV 90.7 fL (80.0-100.0); Mean Platelet Volume 7.9; Monocytes # (A) 0.5 k/uL (0-1.0); Monocytes % (A) 6 %; Neutrophils # (A) 4.1 k/uL (1.3-7.7); Neutrophils % (A) 54 %; Platelet Count 227 k/uL (150-450); RBC 5.55 m/uL (4.30-5.90); RDW 12.8 % (11.5-15.5); WBC 7.7 k/uL (3.8-10.6)
[2020-08-29 15:03] LABS: Potassium 4.7 mmol/L (3.5-5.1)
== END | disposition home or self-care (01) ==
LOC: LABPAT 11:52
PROVIDERS: ATTEND Orthopaedic Surgery
DX: M75.41 Impingement syndrome of right shoulder (principal)
CPT/HCPCS: 36415; 80051; 85025

== ENCOUNTER → 2020-09-05 | Day surgery (SDC) | payer OTHER ==
[2020-09-03 15:17] VITALS: BMI 31.8
--- NOTE | 2020-09-04 14:35 | HP ---
HISTORY AND PHYSICAL DATE OF SURGERY: 09/05/2020 Oscar Guillen is a 50-year-old patient seen with progressive right shoulder pain. After treatment options were discussed. He elected to proceed with arthroscopy. Consent regarding the procedure was obtained. PAST MEDICAL HISTORY: Hypothyroidism, jhk-myyimjv-lztodvxrh diabetes, hypertension. PAST SURGICAL HISTORY: Appendectomy. DAILY MEDICATIONS: Levothyroxine, losartan, Trulicity. ALLERGIES: None. SOCIAL HISTORY: He denies tobacco use. PHYSICAL EVALUATION OF THE RIGHT SHOULDER: Flexion is 150 degrees, abduction is 140 degrees, external rotation 50 degrees. Pain and weakness. There is tenderness along the anterior lateral acromion rotator cuff insertion site. Impingement sign is positive at 90 degrees. Distal neurovascular exam is intact. RADIOGRAPHS OF THE RIGHT SHOULDER: Revealed a type 2 anterior acromion, evidence for acromioclavicular joint osteoarthritis. A right shoulder MRI revealed acromioclavicular joint osteoarthritis. IMPRESSION: 1. Right shoulder impingement. 2. Right shoulder acromioclavicular joint osteoarthritis. 3. Hypertension. 4. Hyperlipidemia. 5. Ikw-yiitjkn-lwurroaci diabetes. PLAN: Right shoulder arthroscopy, subacromial decompression, Dimple procedure and debridement. MMODL / IJN: [id number] /
[~2020-09-05] MED LIST changes: +DEXAMETHASONE SOD PHOSPHATE 4 MG/ML 1 ML VIAL IV ONE; +DEXAMETHASONE SOD PHOSPHATE 4 MG/ML 1 ML VIAL ONE; +HYDROmorphone 0.5 MG/0.5 ML SYRINGE IVP PRN; +LACTATED RINGERS 1,000 ML IV ONE; +LACTATED RINGERS 1,000 ML IV SCH; +LIDOCAINE 1% (10MG/ML) FOR IV START INTRADERMA PRN; +LIDOCAINE 1% INJ 10MG/ML (20 ML MDV) ONE; +MIDAZOLAM 2 MG/2 ML VIAL IVP ONE; +MIDAZOLAM 2 MG/2 ML VIAL ONE; +ONDANSETRON 4 MG/2 ML VIAL IVP ONE; +PROPOFOL 10 MG/ML 20 ML VIAL IV ONE; -REGADENOSON 0.4 MG/5 ML SYRINGE IV ONE; +ROPIVACAINE 5 MG/ML 30 ML VIAL ONE; +SCOPOLAMINE 1.5MG/72HR PATCH TRANSDERM ONE; +SUCCINYLCHOLINE CHLORIDE 100 MG/5 ML SYR IV ONE; +fentaNYL (PF) 50 MCG/ML 2 ML AMP ONE
[2020-09-05 08:30] LABS: Glucose,Whole Blood 119 mg/dL (75-99)
--- NOTE | 2020-09-05 11:13 | P.OP ---
Date of Procedure: 09/05/20 Preoperative Diagnosis: Right shoulder impingement Postoperative Diagnosis: 1. Right shoulder rotator cuff tear 2. Right shoulder impingement 3. Right shoulder acromioclavicular joint osteoarthritis 4. Right shoulder partial long head biceps tendon tear Procedure(s) Performed: 1. Right shoulder arthroscopic rotator cuff repair 2. Right shoulder arthroscopic subacromial decompression 3. Right shoulder arthroscopic Dimple procedure 4. Right shoulder arthroscopic biceps tenotomy Implants: 24.75 Arthrex swivel lock anchors Anesthesia: GETA, regional (Interscalene block) Surgeon: Semaj Mackenzie Director Of District Office #1: Gregorio Estevez Estimated Blood Loss (ml): 10 Pathology: none sent Condition: stable Disposition: PACU Indications for Procedure: 50-year-old gentleman seen with progressive right shoulder pain. After treatment options were discussed, he elected to proceed with arthroscopy. Operative Findings: See description of procedure Description of Procedure: Patient underwent an interscalene block by department of anesthesia. The patient was then taken to the operative suite. The patient underwent a general anesthetic by the department of anesthesia. The patient was placed into a lateral position and secured. There was appropriate padding of the bony prominence. Right shoulder was then prepped and draped in normal sterile orthopedic fashion. We placed the extremity in 10 pounds of longitudinal traction. A posterior incision was now made for a posterior working portal site. The trocar and cannula were inserted into the glenohumeral joint. Arthroscopy was initiated. Spinal needle was now inserted anteriorly, to ascertain the anterior working portal site. An incision was now made in that area, a trocar was inserted followed by a probe. There was hyperemia and partial tearing long head biceps tendon. There was some superficial fraying of the superior labrum. There was no significant chondromalacia present. I performed an arthroscopic biceps tenotomy. I debrided the superficial labral tear down to stable labral tissue. I now probed the residual labrum and it was found to be stable. Instruments now removed from glenohumeral joint. Utilizing the posterior working portal site, the trocar and cannula were inserted into the subacromial space. Arthroscopy initiated. I made an incision 2 fingerbreadths lateral to the acromion. I introduced my trocar followed by my ArthroCare ablator. I now began ablating thick subacromial bursal tissue, which exposed the undersurface of the anterior acromion. There was diminished subacr omial space. There was a very prominent anterior acromion. A motorized bur was introduced and a subacromial decompression was performed. I also excised some osteophytes off the inferior aspect of the distal clavicle. The AC joint was visualized and noted to be fairly arthritic. The motorized bur was introduced in the anterior portal site and a Dimple procedure was performed without difficulty, decompressing the AC joint nicely. I turned my attention to the rotator cuff. There was a 1.5 cm rotator cuff tear. I debrided the margins getting down to stable tendon tissue. I abraded the footprint with a motorized bur. I passed 2 everted mattress suture through good bites of rotator cuff tendon. I punched hole in the footprint for insertion of an anchor. All 4 limbs of suture were passed through the eyelet of a 4.75 Arthrex swivel lock anchor. The eyelet was placed into the pre-punch hole and Blaine BROWN tensioned all sutures and the emy the anchor with good fixation noted. All residual suture limbs were now clipped. I did note a residual dogear along the midportion posterior aspect of the repair. I passed 2 Arthrex suture links through good bites of tissue there. I punched hole distally for insertion of an additional anchor. I trialed a 3.9 Arthrex swivel lock anchor but the eyelet was unstable. I now converted over to the 4.75 anchor placing the eyelet into pre-punch hole. Blaine BROWN tensioned the sutures and deployed that anchor as well. Residual suture limbs were clipped. We had good compression of the tendon along the entire footprint. I injected 1 mL Renyte intra-articular. Instruments now removed from the portal sites. All portal sites were approximated with nylon suture. Sterile dressings were applied followed by a shoulder sling. Gregorio BROWN assisted in this complex case. The patient was awakened, transferred to a bed, and taken to recovery in stable condition.
[2020-09-05 11:14] LABS: Glucose,Whole Blood 139 mg/dL (75-99)
[2020-09-05 11:18] VITALS: TEMP 97
[2020-09-05 11:28] VITALS: RESP 16
[2020-09-05 12:19] VITALS: BP 128/85; PULSE 69
--- NOTE | 2020-09-05 16:04 | P.ANPRN ---
Procedure Note - Anesthesia - Nerve Block Performed Right Interscalene Time Out Performed: Yes (:52) Date of Procedure: 09/05/20 Procedure Start Time: Procedure Stop Time: Location of Patient: PreOp Indication: Acute Post-Operative Pain, Requested by Surgeon (Dr Mackenzie) Sedation Type: Sedate with meaningful contact maintained Preparation: Sterile Prep Position: Supine Catheter: None Needle Types: Pajunk Needle Gauge: Other (see comment) (22g) Ultrasound used to visualize needle placement: Yes Ultrasound used to observe medication spread: Yes Injectate: 0.5% Ropivacaine (see comment for volume) (20cc + decadron 4mg) Blood Aspirated: No Pain Paresthesia on Injection Noted: No Resistance on Injection: Normal Image Stored and Saved: Yes Events: Uneventful and Well Tolerated
== END | disposition home or self-care (01) ==
LOC: OR 07:36
PROVIDERS: ATTEND Orthopaedic Surgery
DX: M75.101 Unspecified rotator cuff tear or rupture of right shoulder, not specified as traumatic (principal); M25.811 Other specified joint disorders, right shoulder; M19.011 Primary osteoarthritis, right shoulder; M66.821 Spontaneous rupture of other tendons, right upper arm; M94.8X1 Other specified disorders of cartilage, shoulder; I10 Essential (primary) hypertension; E78.5 Hyperlipidemia, unspecified; E11.9 Type 2 diabetes mellitus without complications; E03.9 Hypothyroidism, unspecified; Z90.49 Acquired absence of other specified parts of digestive tract; Z79.890 Hormone replacement therapy; Z79.899 Other long term (current) drug therapy; G47.33 Obstructive sleep apnea (adult) (pediatric); K21.9 Gastro-esophageal reflux disease without esophagitis
CPT/HCPCS: 64415; 76942; 29827; 29826; 29824; C1713 ×2; Q4212; J2250; J1100; J0690; J2405; J2001; J3010; J2795; J0330; J2704

== ENCOUNTER → 2020-10-22 | Outpatient (CLI) | payer OTHER ==
[2020-10-22 11:26] LABS: HCT 49.2 % (39.0-53.0); HGB 16.1 gm/dL (13.0-17.5); MCH 28.5 pg (25.0-35.0); MCHC 32.8 g/dL (31.0-37.0); Mean Platelet Volume 7.6; Platelet Count 222 k/uL (150-450); RBC 5.66 m/uL (4.30-5.90); RDW 13.2 % (11.5-15.5); WBC 7.2 k/uL (3.8-10.6)
[2020-10-22 17:06] LABS: Albumin 4.7 g/dL (3.80-4.90); Anion Gap 9.2 mmol/L (4.00-12.00); Carbon Dioxide 23.8 mmol/L (21.6-31.8); Potassium 4.2 mmol/L (3.5-5.5)
[2020-10-22 17:07] LABS: African American GFR (CKD) 91.5 (60.0-200.0); Calcium 9.7 mg/dL (8.7-10.3)
== END | disposition home or self-care (01) ==
LOC: LABWHC1 10:07
PROVIDERS: ATTEND Internal Medicine Endocrinology, Diabetes & Metabolism
DX: E11.65 Type 2 diabetes mellitus with hyperglycemia (principal); E78.2 Mixed hyperlipidemia; E87.8 Other disorders of electrolyte and fluid balance, not elsewhere classified; E86.0 Dehydration; E03.9 Hypothyroidism, unspecified
CPT/HCPCS: 36415; 80051; 82040; 82310; 82565; 83735; 84450; 84460; 84520; 85027

== ENCOUNTER → 2021-02-22 | Outpatient (CLI) | payer OTHER ==
[2021-02-22 18:13] LABS: African American GFR (CKD) 102.7 (60.0-200.0); Chol/HDL Ratio 4.2; LDL Cholesterol,Calculated 99.8 mg/dL (0.0-131.0); Non-African American GFR(CKD) 88.6 (60.0-200.0); Potassium 4.3 mmol/L (3.5-5.5); VLDL Calculation 28.2 mg/dL (5.00-40.00)
[2021-02-22 18:21] LABS: Follicle Stimulating Hormone 2.7 mIU/mL; Luteinizing Hormone 2.7 mIU/mL; T4, Free (Free Thyroxine) 1.1 ng/dL (0.80-1.80)
[2021-02-22 19:05] LABS: Hemoglobin A1C 6.1 % (4.0-6.0)
[2021-02-22 19:54] LABS: Creatinine 24 Hour,Urine 2.41 g/24Hr (1.00-2.00); Total Protein 24 Hour,Urine 123.6 mg/24Hr; Total Volume 24 Hour,Urine 2575 mL
[2021-02-24 07:42] LABS: Urine Creatinine 2.39
[2021-02-24 07:44] LABS: Microalbumin Creatinine Ratio <30
== END | disposition home or self-care (01) ==
LOC: LABWHC1 09:49
PROVIDERS: ATTEND Internal Medicine Endocrinology, Diabetes & Metabolism
DX: E78.2 Mixed hyperlipidemia (principal); E86.0 Dehydration; E87.8 Other disorders of electrolyte and fluid balance, not elsewhere classified; E11.65 Type 2 diabetes mellitus with hyperglycemia
CPT/HCPCS: 36415; 80051; 80061; 81050; 82040; 82043; 82306; 82565; 82570; 82575; 83001; 83002; 83036; 84156; 84270; 84403; 84439; 84443; 84450; 84460; 84520

== ENCOUNTER → 2022-01-03 | Outpatient (CLI) | payer OTHER ==
[2022-01-03 17:14] LABS: Anion Gap 15.3 mmol/L (10.00-18.00); Blood Urea Nitrogen 22.5 mg/dL (9.0-27.0); Carbon Dioxide 20.7 mmol/L (20.0-27.5); Potassium 4.4 mmol/L (3.5-5.5)
[2022-01-03 17:24] LABS: T4, Free (Free Thyroxine) 1.13 ng/dL (0.800-1.800)
[2022-01-03 21:39] LABS: Total Volume 24 Hour,Urine 2450 mL
[2022-01-03 21:57] LABS: Total Protein 24 Hour,Urine 5.8 mg/dL (0.0-165.0)
[2022-01-03 22:24] LABS: Creatinine 24 Hour,Urine 2.23 g/24Hr (1.00-2.00)
== END | disposition home or self-care (01) ==
LOC: LABWHC1 09:16
PROVIDERS: ATTEND Internal Medicine Endocrinology, Diabetes & Metabolism
DX: Z00.01 Encounter for general adult medical examination with abnormal findings (principal); E03.9 Hypothyroidism, unspecified; E87.8 Other disorders of electrolyte and fluid balance, not elsewhere classified; E78.2 Mixed hyperlipidemia
CPT/HCPCS: 36415; 80051; 81050; 82565; 82570; 84156; 84439; 84443; 84450; 84460; 84481; 84520

== ENCOUNTER → 2024-02-16 | Outpatient (CLI) | payer OTHER ==
[2024-02-16 16:22] LABS: ALT 69 U/L (10-49); AST 30 U/L (14-35); Blood Urea Nitrogen 20.1 mg/dL (9.0-27.0); Carbon Dioxide 20.8 mmol/L (21.6-31.8); Chloride 108 mmol/L (96-109); Potassium 4.3 mmol/L (3.5-5.5); Prostate Specific Antigen 0.58 ng/mL (0.000-3.500); Sodium 142 mmol/L (135-145)
[2024-02-16 16:35] LABS: Lipase 387 U/L (14-60)
== END | disposition home or self-care (01) ==
LOC: LABWHC1 09:14
PROVIDERS: ATTEND Internal Medicine Endocrinology, Diabetes & Metabolism
DX: E11.21 Type 2 diabetes mellitus with diabetic nephropathy (principal); E11.65 Type 2 diabetes mellitus with hyperglycemia; E78.2 Mixed hyperlipidemia
CPT/HCPCS: 36415; 80051; 82306; 82565; 83690; 84153; 84443; 84450; 84460; 84478; 84520

== ENCOUNTER → 2024-11-11 | Outpatient (CLI) | payer OTHER ==
[2024-11-11 22:44] LABS: ALT 57 U/L (10-49); AST 31 U/L (14-35); Amylase 33 U/L (23-121); Blood Urea Nitrogen 19.2 mg/dL (9.0-27.0); Carbon Dioxide 22.8 mmol/L (21.6-31.8); Chloride 106 mmol/L (96-109); Potassium 3.9 mmol/L (3.5-5.5); Sodium 142 mmol/L (135-145)
[2024-11-11 23:10] LABS: Lipase 40 U/L (14-60)
== END | disposition home or self-care (01) ==
LOC: LABWHC1 10:33
PROVIDERS: ATTEND Internal Medicine Endocrinology, Diabetes & Metabolism
DX: E03.9 Hypothyroidism, unspecified (principal); E11.21 Type 2 diabetes mellitus with diabetic nephropathy; E11.65 Type 2 diabetes mellitus with hyperglycemia; K71.9 Toxic liver disease, unspecified
CPT/HCPCS: 36415; 80051; 82150; 82565; 83690; 84450; 84460; 84478; 84520